=== PATIENT | male | born 1975 | race Caucasian/White ===

== ENCOUNTER 2022-07-03 11:59 | Emergency (ER) | payer OTHER ==
[2022-07-03] MEDS ORDERED: CEPHALEXIN MONOHYDRATE 500 MG CAPSULE (UD) PO ONE (12:09)
[2022-07-03] MEDS ORDERED: LORATADINE 10 MG TABLET PO ONE (12:09)
[2022-07-03 12:13] VITALS: BP 160/100; PULSE 100; RESP 16; TEMP 98.6; BMI 25.7
[2022-07-03] MEDS ORDERED: LORATADINE 10 MG TABLET ONE (12:16)
[2022-07-03] MEDS ORDERED: CEPHALEXIN MONOHYDRATE 500 MG CAPSULE (UD) ONE (12:16)
[2022-07-03] MEDS ORDERED: predniSONE 20 MG TABLET (UD) PO ONE (12:18)
[2022-07-03] MEDS ORDERED: predniSONE 20 MG TABLET (UD) ONE (12:19)
== END 2022-07-03 12:26 | disposition home or self-care (01) ==
LOC: FER 11:59
DX: L23.7 Allergic contact dermatitis due to plants, except food (principal)
CPT/HCPCS: 99283-25